=== PATIENT | female | born 1980 | race Caucasian/White ===

== ENCOUNTER 2016-09-05 13:04 | Emergency (ER) | payer SELFPAY ==
[2016-09-05 13:53] VITALS: TEMP 98
[2016-09-05 13:54] VITALS: BMI 41.9
--- NOTE | 2016-09-05 14:01 | EDPRACDOC ---
- General Information Stated Complaint: PAIN WITH RESPIRATION Time Seen by Provider: 09/05/16 13:56 Home Medications: Home Medications Acetaminophen Ex Str Tablet [TYLENOL EXTRA STRENGTH Tablet] 1,000 mg PO BID PRN 07/19/16 Naproxen Sodium [Aleve] 440 mg PO BID PRN 07/19/16 Unk Buspar 0 mg PO .SEE COMMENTS 07/19/16 Ketoprofen 50 mg PO BID PRN #20 capsule 09/05/16 Promethazine Dextromethorphan [Phenergan DM] 5 ml PO Q6 PRN #120 ml 09/05/16 Allergies/Adverse Reactions: Allergies Allergy/AdvReac Type Severity Reaction Status Date / Time cefaclor [From [facility]] Allergy Mild RASH Verified 09/05/16 14:07 - History of Present Illness Symptoms Started: TODAY HPI: PT COMPLAINS OF COUGH PROD OF YELLOW PHLEGM X 1 WEEK, DX WITH "URI", PT STATES THAT TODAY SHE HAS SHARP PAIN IN RIGHT UPPER SHOULDER AND CHEST WITH COUGH, HAS HAD "FEVER", USE WARM COMPRESS AND TOOK HOT SHOWER TODAY WITH NO RELIEF OF PAIN. PT HAS BEEN TAKING OTC MEDS FOR COUGH AND CONGESTION. Symptoms: Reports: Cough, Fever, Nasal Symptoms. Denies: Earache, Headache, Sore Throat Recently Treated Infections:: Reports: URI Recent Medications: Reports: None Relevant History Of: Reports: None Shortness of Breath: None Cough Frequency: Intermittent Cough Description: Reports: Productive Rhinorrhea: Reports: Clear Ear Symptoms: Reports: None Associated Signs and Symptoms: Reports: Cough, Fever, Nasal Symptoms ED Past Medical History - History Reviewed Yes Nurses notes reviewed and agree except as marked - Patient Medical History Neurological History: Reports: Migraine Respiratory History: Reports: Asthma GI/ History: Reports: Urinary Tract Infection, Kidney Stones, Gastroesophageal Reflux Psychological History: Reports: Anxiety. Denies: Depression, Substance Use Disorder Systemic History: Reports: Cancer (Cervical cancer) Surgical History: Reports: Cholecystectomy (2002), Other (BTL) - Family Medical History Reports: Hypertension (Son), Diabetes (Mother), Cancer (Grandmother), Cardiac Disorders (Family history of early [place]'s. Father, brother.) - Social Medical History Smoking Status: Former smoker Social History: Denies: Substance Use Disorder EDM Review of Systems - Review of Systems Constitutional: Fever. negative: Chills Eyes: negative: Blurred Vision, Double Vision Ears: negative: Drainage Throat: No Symptoms Reported Nose: Congestion, Discharge Respiratory: Cough. negative: Shortness of Breath, Wheezing Cardiovascular: negative: Chest Pain, Palpitations Gastrointestinal: negative: Diarrhea, Vomiting Musculoskeletal: Chestwall Integumentary: No Symptoms Reported - Physical Exam Constitutional: Alert (Awake), No apparent distress Oriented to: Time, Person, Place Last recorded Vital Signs: Last Vital Signs Temp 98.0 F 09/05/16 13:53 Pulse 74 09/05/16 13:53 Resp 20 09/05/16 13:53 BP 148/72 09/05/16 13:53 Pulse Ox 97 09/05/16 13:53 Oxygen Pulse Oxygen Saturation 97 O2 Device Oxygen Flow Rate Fraction of Inspired Oxygen ( FIO2) - HEENT Head: Normal ( normocephalic) Eye Exam: Normal (PERRL, EOMI, Sclera white) Oropharynx: Normal (Pharynx:Moist without exudate,Gums-no swelling) Tympanic Membrane: Normal ENT EAC: Normal TMJ: Normal Nose: No Symptoms Reported (septum midline) Neck: Normal (FROM, trachea at midline) - Respiratory/Cardiovascular Respiratory: Normal - CTA (BBS clear to auscultation without adventitious sounds ) Cardiovascular: Normal (RRR without murmur, gallop or rub) - Musculoskeletal Musculoskeletal Comment: CHEST WALL: TTP RIGHT UPPER CHEST WALL AND RIGHT UPPER POSTERIOR SHOULDER, NO CREPITANCE OR SUBCUT EMPHYSEMA - Integumentary Skin: Normal, Warm, Dry Lymphatics: Normal (no adenopathy) - Neurologic Memory Impaired: Normal Motor Function: Normal (Normal tone, Pulses 2+ No cyanosis or edema, FROM) Cranial Nerve: Normal (CN II-X11 intact sensation, strength 5/5) Cerebellar: Normal Mood Description: Normal Perception: Normal - Differential Diagnosis Bronchitis, Pneumonia, URI - Diagnostic Imaging CXR Image interpreted by: Radiologist CHEST 2 VIEW COMPARISON: 07/19/2016 FINDINGS: The heart size and mediastinal contours are within normal limits. Both lungs are clear. The visualized skeletal structures are unremarkable. IMPRESSION: No active cardiopulmonary disease. Decision Time to Discharge: 14:42 - Departure Disposition: Home Condition: Stable Final Diagnosis: Costochondritis, acute URI (upper respiratory infection) Qualifiers: URI type: unspecified URI Qualified Code(s): J06.9 - Acute upper respiratory infection, unspecified Instructions: Costochondritis (ED), Upper Respiratory Infection (ED) Education/Counseling Given To: Patient Education/Counseling Given Regarding: Diagnosis, Treatment, Prognosis, Follow Up Referrals: Thomas Hutton MD [Staff Physician] - One Week Prescriptions: Ketoprofen 50 mg PO BID PRN #20 capsule PRN Reason: Pain Promethazine Dextromethorphan [Phenergan DM] 5 ml PO Q6 PRN #120 ml PRN Reason: Cough Forms: Excuse Note Additional Instructions: Rest, drink plenty of fluids, use Tylenol every 4 hours and Motrin every 6 hours as needed for pain or fever, return to the ED for any worsening symptoms or concerns.
[2016-09-05] MEDS ORDERED: IBUPROFEN 800 MG TAB PO ONE (14:03)
--- NOTE | 2016-09-05 14:32 | DIRPT ---
CLINICAL DATA: Cough EXAM: CHEST 2 VIEW COMPARISON: 07/19/2016 FINDINGS: The heart size and mediastinal contours are within normal limits. Both lungs are clear. The visualized skeletal structures are unremarkable. IMPRESSION: No active cardiopulmonary disease. Electronically Signed By: Antonio Marsh M.D. On: 09/05/2016 14:29
[2016-09-05 15:19] VITALS: BP 142/83; PULSE 67
== END 2016-09-05 15:19 | disposition home or self-care (01) ==
LOC: EDMC 13:04
DX: M94.0 Chondrocostal junction syndrome [Tietze] (principal); J06.9 Acute upper respiratory infection, unspecified
CPT/HCPCS: 71020; 99283; J3490

== ENCOUNTER 2016-10-11 18:04 | Emergency (ER) | payer SELFPAY ==
[2016-10-11 18:06] VITALS: TEMP 98.9
[2016-10-11 18:50] VITALS: BMI 41.2
--- NOTE | 2016-10-11 19:33 | EDPRACDOC ---
- General Information Chief Complaint: Sore Throat Stated Complaint: SORE THROAT Time Seen by Provider: 10/11/16 19:26 Information Source: Patient Mode Of Arrival: Car Home Medications: Home Medications Acetaminophen Ex Str Tablet [TYLENOL EXTRA STRENGTH Tablet] 1,000 mg PO BID PRN 07/19/16 Naproxen Sodium [Aleve] 440 mg PO BID PRN 07/19/16 Buspirone HCl [Buspar] 30 mg PO BID 10/11/16 Ibuprofen Tablet [Motrin] 800 mg PO TID PRN #30 tab 10/11/16 Allergies/Adverse Reactions: Allergies Allergy/AdvReac Type Severity Reaction Status Date / Time cefaclor [From [facility]] Allergy Mild RASH Verified 10/11/16 18:50 - History of Present Illness Onset: 2 days HPI: PT COMPLAINS OF SORE THROAT X 2 DAYS, FEVER TO 101 TODAY, USING TYLENOL AND MOTRIN WITH SOME RELIEF, STATES THROAT FEELS SWOLLEN. Sore Throat Symptoms: Reports: Pain. Denies: Muffled Voice, Hoarse, Secretion Difficulty White Spots Location: Denies: Lips, Tongue, Buccal Membrane, Gingiva, Palate, Pharynx, Other Recent: Reports: None Relevant History of: Reports: None Pain Severity: Reports: Moderate Urinary Output: Normal Oral Intake: Normal Associated Signs and Symptoms: Reports: Fever. Denies: Chills, Rash, Cough, Nasal Symptoms, Earache, Abdominal Pain ED Past Medical History - History Reviewed Yes Nurses notes reviewed and agree except as marked - Patient Medical History Neurological History: Reports: Migraine Respiratory History: Reports: Asthma GI/ History: Reports: Urinary Tract Infection, Kidney Stones, Gastroesophageal Reflux Psychological History: Reports: Anxiety. Denies: Depression, Substance Use Disorder Systemic History: Reports: Cancer (Cervical cancer) Surgical History: Reports: Cholecystectomy (2002), Other (BTL). Denies: Hysterectomy - Family Medical History Reports: Hypertension (Son), Diabetes (Mother), Cancer (Grandmother), Cardiac Disorders (Family history of early [place]'s. Father, brother.) - Social Medical History Smoking Status: Never smoker Social History: Denies: Substance Use Disorder EDM Review of Systems - Review of Systems Constitutional: Fever. negative: Chills Eyes: negative: Blurred Vision, Double Vision Ears: negative: Drainage, Pain Throat: Pain Nose: negative: Congestion, Discharge Respiratory: negative: Cough, Shortness of Breath, Wheezing Cardiovascular: negative: Chest Pain Gastrointestinal: negative: Nausea, Vomiting Neurological: negative: Dizziness, Headache, Numbness, Weakness Musculoskeletal: No Symptoms Reported Integumentary: No Symptoms Reported - Physical Exam Constitutional: Alert (Awake), No apparent distress Oriented to: Time, Person, Place Last recorded Vital Signs: Last Vital Signs Temp 98.9 F 10/11/16 18:04 Pulse 77 10/11/16 18:04 Resp 18 10/11/16 18:04 BP 111/77 10/11/16 18:04 Pulse Ox 97 10/11/16 18:04 Oxygen Pulse Oxygen Saturation 97 O2 Device Room Air Oxygen Flow Rate Fraction of Inspired Oxygen ( FIO2) - HEENT Head: Normal ( normocephalic) Eye Exam: Normal (PERRL, EOMI, Sclera white) Oropharynx: Red. negative: Tonsillar Hypertrophy, [place] Tympanic Membrane: Normal ENT EAC: Normal TMJ: Normal Nose: No Symptoms Reported (septum midline) Neck: Lymphadenopathy (MILD SUBMANDIBULAR) - Respiratory/Cardiovascular Respiratory: Normal - CTA (BBS clear to auscultation without adventitious sounds ) Cardiovascular: Normal (RRR without murmur, gallop or rub) - Integumentary Skin: Normal, Warm, Dry Lymphatics: Normal (no adenopathy) - Neurologic Memory Impaired: Normal Motor Function: Normal (Normal tone, Pulses 2+ No cyanosis or edema, FROM) Cranial Nerve: Normal (CN II-X11 intact sensation, strength 5/5) Cerebellar: Normal Mood Description: Normal Perception: Normal - Differential Diagnosis Venkata's angina, Pharyngitis Streptococcal, Pharyngitis Viral Decision Time to Discharge: 19:33 - Departure Disposition: Home Condition: Stable Final Diagnosis: Acute pharyngitis Instructions: Pharyngitis (ED) Education/Counseling Given To: Patient Education/Counseling Given Regarding: Diagnosis, Treatment, Prognosis, Follow Up Referrals: None,No Provider [Primary Care Provider] - One Week Prescriptions: New Ibuprofen Tablet [Motrin] 800 mg PO TID PRN #30 tab PRN Reason: Pain No Action Naproxen Sodium [Aleve] 440 mg PO BID PRN PRN Reason: Pain Acetaminophen Ex Str Tablet [TYLENOL EXTRA STRENGTH Tablet] 1,000 mg PO BID PRN PRN Reason: Pain Buspirone HCl [Buspar] 30 mg PO BID Forms: Excuse Note Additional Instructions: REST, DRINK PLENTY OF FLUIDS, RETURN TO THE ED FOR ANY WORSENING SYMPTOMS OR CONCERNS.
[2016-10-11 19:41] VITALS: BP 106/72; PULSE 72
== END 2016-10-11 19:40 | disposition home or self-care (01) ==
LOC: EDMC 18:04
DX: J02.9 Acute pharyngitis, unspecified (principal)
CPT/HCPCS: 99282